=== PATIENT | female | born 1950 | race Caucasian/White ===

== ENCOUNTER 2018-11-19 11:49 | Emergency (ER) | payer OTHER ==
[~2018-11-19] VITALS: Ht 160 cm; Wt 67.1 kg
[2018-11-19] MEDS ORDERED: LOSARTAN-HCTZ1 EAC2 (12:23)
[2018-11-19] MEDS ORDERED: ZANTAC300 MG (12:23)
[2018-11-19] MEDS ORDERED: NORVASC 10 MG (12:24)
== END 2018-11-19 13:25 | disposition home or self-care (01) ==
LOC: ER 11:49
DX: R51 Headache (principal); F43.8 Other reactions to severe stress